=== PATIENT | male | born 1950 | race Caucasian/White ===

== ENCOUNTER 2024-09-12 10:00 | Outpatient (CLI) | payer MEDICARE, SELFPAY | END 2024-09-12 10:01 | disposition home or self-care (01) | LOC: NFLDREF 18:22 | PROVIDERS: Visit Provider Physician Assistant Surgical | DX: R30.0 Dysuria (principal) | CPT/HCPCS: 87086 ==

== ENCOUNTER 2024-09-19 08:45 | Outpatient (CLI) | payer MEDICARE, SELFPAY | END 2024-09-19 08:46 | disposition home or self-care (01) | LOC: NFLDREF 17:05 | DX: N30.01 Acute cystitis with hematuria (principal); Z87.442 Personal history of urinary calculi | CPT/HCPCS: 87086 ==